=== PATIENT | female | born 2000 | race Caucasian/White ===

== ENCOUNTER → 2024-06-30 | Outpatient (CLI) | payer OTHER ==
[2024-06-30 18:53] LABS: HEMATOCRIT 33.7 % (36.0-47.0); HEMOGLOBIN 11.6 g/dl (12.0-15.5); MEAN CORPUSCULAR HEMOGLOBIN 31.4 pg (27.0-33.0); MEAN CORPUSCULAR HGB CONC 34.4 g/dl (32.0-36.5); MEAN CORPUSCULAR VOLUME 91.1 fl (80.0-96.0); PLATELET COUNT, AUTOMATED 267 10^3/uL (150-450); WHITE BLOOD COUNT 8.7 10^3/uL (4.0-10.0)
[2024-06-30 19:45] LABS: HIV 1&2 SCREEN NEGATIVE (NEGATIVE)
[2024-06-30 19:54] LABS: HEPATITIS C VIRUS ABY INDEX 0.18 INDEX (<0.8)
== END ==
LOC: M PLALAB 16:29
PROVIDERS: ATTEND Nurse Practitioner Family
DX: Z34.83 Encounter for supervision of other normal pregnancy, third trimester (principal)

== ENCOUNTER → 2024-07-18 | Outpatient (CLI) | payer OTHER ==
[2024-07-18 21:19] LABS: GC DNA AMPLIFICATION NEGATIVE (NEGATIVE)
== END ==
LOC: M PLALAB 14:06
PROVIDERS: ATTEND Nurse Practitioner Family
DX: Z34.83 Encounter for supervision of other normal pregnancy, third trimester (principal)

== ENCOUNTER → 2024-07-21 | Outpatient (REF) | payer OTHER | LOC: M SFHCWAGY 14:58 | PROVIDERS: ATTEND Nurse Practitioner Family | DX: N89.8 Other specified noninflammatory disorders of vagina (principal) ==

== ENCOUNTER 2024-08-09 04:31 | Outpatient (CLI) | payer OTHER ==
[2024-08-09] VITALS (7 sets, daily range): BP systolic 101–130; BP diastolic 45–66
[~2024-08-09] VITALS: Ht 175.3 cm; Wt 103.6 kg
[2024-08-09] MEDS: LR 1,000 ML IV ONE (05:25)
[2024-08-09 06:07] LABS: APPEARANCE, URINE CLOUDY (CLEAR); BACTERIA, URINE AUTO 3+ (NEGATIVE); BILIRUBIN, URINE AUTO NEGATIVE (NEGATIVE); BLOOD, URINE BLOOD 2+ (NEGATIVE); COLOR, URINE YELLOW (YELLOW); GLUCOSE, URINE (UA) AUTO NEGATIVE (NEGATIVE); KETONE, URINE AUTO TRACE mg/dL (NEGATIVE); LEUKOCYTE ESTERASE, URINE AUTO 3+ (NEGATIVE); MUCUS, URINE SMALL (NEGATIVE); NITRITE, URINE AUTO POSITIVE (NEGATIVE); PROTEIN, URINE AUTO 2+ mg/dL (NEGATIVE); RBC, URINE AUTO 40 /HPF (0-3); SPECIFIC GRAVITY URINE AUTO 1.006 (1.002-1.035); SQUAMOUS EPITHELIAL CELL UR AU 1 /HPF (0-6); UROBILINOGEN, URINE AUTO 0.2 mg/dL (0.0-2.0); WBC, URINE AUTO TNTC /HPF (0-3)
[2024-08-09] MEDS: LR 1,000 ML IV SCH (07:51)
[2024-08-09 07:52] LABS: HEMOGLOBIN 10.6 g/dl (12.0-15.5); MEAN CORPUSCULAR HEMOGLOBIN 29.8 pg (27.0-33.0); MEAN CORPUSCULAR HGB CONC 34.2 g/dl (32.0-36.5); MEAN CORPUSCULAR VOLUME 87.1 fl (80.0-96.0); PLATELET COUNT, AUTOMATED 235 10^3/uL (150-450); RED BLOOD COUNT 3.56 10^6/uL (4.00-5.40); WHITE BLOOD COUNT 12.3 10^3/uL (4.0-10.0)
[2024-08-09] MEDS: MORPHINE 4 MG/ML 1ML VIAL IV ONE (07:52)
[2024-08-09 07:59] LABS: ALBUMIN 2.8 G/DL (3.2-5.2); ALKALINE PHOSPHATASE 101 U/L (35-104); ALT/SGPT 10 U/L (7.0-40); AST/SGOT 13 U/L (<34); BLOOD UREA NITROGEN 9 MG/DL (9-23); CALCIUM LEVEL 9.2 MG/DL (8.5-10.1); CARBON DIOXIDE LEVEL 22 MMOL/L (20-31); CHLORIDE LEVEL 107 MMOL/L (98-107); CREATININE FOR GFR 0.59 MG/DL (0.55-1.30); GLOMERULAR FILTRATION RATE > 60.0 (>60); GLUCOSE, FASTING 112 MG/DL (60-100); POTASSIUM SERUM 4.2 MMOL/L (3.5-5.1); SODIUM LEVEL 138 MMOL/L (136-145); TOTAL PROTEIN 6.6 G/DL (5.7-8.2)
[2024-08-09] MEDS: cefTRIAXone SOD 1 GM in DEXTROSE 5% (D5W) ADV/MINI-BAG 50 ML IV ONE (08:47)
[2024-08-09] MEDS: MORPHINE 4 MG/ML 1ML VIAL IV PRN (11:16)
[2024-08-09] MEDS: PROMETHAZINE 25MG/ML 1ML VIAL IV PRN (11:50)
[2024-08-10 00:09] VITALS: BP 97/47
[2024-08-10 02:49] VITALS: BP 112/58
[2024-08-10 06:25] VITALS: BP 89/45
[2024-08-10 06:27] VITALS: BP 90/45
[2024-08-10 07:09] LABS: HEMATOCRIT 27.2 % (36.0-47.0); HEMOGLOBIN 9.3 g/dl (12.0-15.5); MEAN CORPUSCULAR HEMOGLOBIN 30.2 pg (27.0-33.0); MEAN CORPUSCULAR HGB CONC 34.2 g/dl (32.0-36.5); MEAN CORPUSCULAR VOLUME 88.3 fl (80.0-96.0); PLATELET COUNT, AUTOMATED 219 10^3/uL (150-450); RED BLOOD COUNT 3.08 10^6/uL (4.00-5.40); WHITE BLOOD COUNT 8.8 10^3/uL (4.0-10.0)
[2024-08-10 07:30] VITALS: BP 116/59
[2024-08-10] MEDS: cefTRIAXone SOD 1 GM in DEXTROSE 5% (D5W) ADV/MINI-BAG 50 ML IV ONE (09:00)
[2024-08-10] MEDS ORDERED: MACR100C43 PO (09:35)
== END 2024-08-10 10:10 | disposition home or self-care (01) ==
LOC: M LDO 04:31
PROVIDERS: ATTEND Obstetrics & Gynecology
DX: O23.03 Infections of kidney in pregnancy, third trimester (principal); O21.8 Other vomiting complicating pregnancy; O09.293 Supervision of pregnancy with other poor reproductive or obstetric history, third trimester; O98.513 Other viral diseases complicating pregnancy, third trimester; B00.9 Herpesviral infection, unspecified; Z3A.33 33 weeks gestation of pregnancy
CPT/HCPCS: 36415; 59025; 76775; 80053; 81001; 82731; 85027; 87088; 87186; 96360; 96361; 96374; 96375; 96376; G0463; J0696; J2550

== ENCOUNTER → 2024-08-27 | Outpatient (CLI) | payer OTHER ==
[~2024-08-27] MED LIST: MACR100C43 PO; ONDA-282 PO
== END ==
LOC: M RAD 14:17
PROVIDERS: ATTEND Nurse Practitioner Family
DX: Z34.83 Encounter for supervision of other normal pregnancy, third trimester (principal); Z3A.36 36 weeks gestation of pregnancy

== ENCOUNTER 2024-08-29 14:27 | Outpatient (CLI) | payer OTHER ==
[~2024-08-29] VITALS: Ht 175.3 cm; Wt 102.9 kg
[~2024-08-29 14:27] MED LIST changes: -ONDA-282 PO
[2024-08-29 14:50] VITALS: BP 131/70
[2024-08-29 15:51] LABS: HEMATOCRIT 32.5 % (36.0-47.0); HEMOGLOBIN 11.1 g/dl (12.0-15.5); MEAN CORPUSCULAR HEMOGLOBIN 29.2 pg (27.0-33.0); MEAN CORPUSCULAR HGB CONC 34.2 g/dl (32.0-36.5); MEAN CORPUSCULAR VOLUME 85.5 fl (80.0-96.0); PLATELET COUNT, AUTOMATED 230 10^3/uL (150-450); WHITE BLOOD COUNT 9.4 10^3/uL (4.0-10.0)
[2024-08-29] MEDS: LACTATED RINGER'S 1000 ML IV STA (16:17)
[2024-08-29] MEDS: ONDANSETRON 4MG 2ML VIAL IV SCH (16:17)
[2024-08-29 16:18] LABS: LIPASE 28 U/L (12-53)
[2024-08-29 16:20] LABS: ALBUMIN 2.8 G/DL (3.2-5.2); ALKALINE PHOSPHATASE 110 U/L (35-104); ALT/SGPT 11 U/L (7.0-40); AMYLASE 44 U/L (30-118); AST/SGOT 14 U/L (<34); BLOOD UREA NITROGEN 11 MG/DL (9-23); CALCIUM LEVEL 8.9 MG/DL (8.5-10.1); CARBON DIOXIDE LEVEL 24 MMOL/L (20-31); CHLORIDE LEVEL 104 MMOL/L (98-107); CREATININE FOR GFR 0.56 MG/DL (0.55-1.30); GLOMERULAR FILTRATION RATE > 60.0 (>60); GLUCOSE, FASTING 96 MG/DL (60-100); POTASSIUM SERUM 4.2 MMOL/L (3.5-5.1); SODIUM LEVEL 138 MMOL/L (136-145); TOTAL PROTEIN 6.6 G/DL (5.7-8.2)
[2024-08-29 16:45] LABS: APPEARANCE, URINE HAZY (CLEAR); BACTERIA, URINE AUTO 1+ (NEGATIVE); BILIRUBIN, URINE AUTO NEGATIVE (NEGATIVE); BLOOD, URINE BLOOD NEGATIVE (NEGATIVE); COLOR, URINE AMBER (YELLOW); GLUCOSE, URINE (UA) AUTO NEGATIVE (NEGATIVE); KETONE, URINE AUTO 2+ mg/dL (NEGATIVE); LEUKOCYTE ESTERASE, URINE AUTO 1+ (NEGATIVE); MUCUS, URINE SMALL (NEGATIVE); NITRITE, URINE AUTO NEGATIVE (NEGATIVE); PROTEIN, URINE AUTO 1+ mg/dL (NEGATIVE); RBC, URINE AUTO 2 /HPF (0-3); SPECIFIC GRAVITY URINE AUTO 1.027 (1.002-1.035); SQUAMOUS EPITHELIAL CELL UR AU 3 /HPF (0-6); WBC, URINE AUTO 6 /HPF (0-3)
[2024-08-29] MEDS: LR 1,000 ML IV SCH (17:46)
[2024-08-29] MEDS ORDERED: ONDA-282 PO (18:41)
[2024-08-29] MEDS: ONDANSETRON 4MG TAB PO ONE (19:05)
== END 2024-08-29 18:50 | disposition home or self-care (01) ==
LOC: M LDO 14:27
PROVIDERS: ATTEND Obstetrics & Gynecology
DX: O99.613 Diseases of the digestive system complicating pregnancy, third trimester (principal); O98.513 Other viral diseases complicating pregnancy, third trimester; K52.9 Noninfective gastroenteritis and colitis, unspecified; B00.9 Herpesviral infection, unspecified; Z88.0 Allergy status to penicillin; Z88.6 Allergy status to analgesic agent; Z88.8 Allergy status to other drugs, medicaments and biological substances; Z91.012 Allergy to eggs; Z3A.36 36 weeks gestation of pregnancy
CPT/HCPCS: 36415; 59025; 80053; 81001; 82150; 83690; 85027; 87086; 96374; 96376; G0463; J2405

== ENCOUNTER → 2024-09-01 | Outpatient (REF) | payer OTHER ==
[~2024-09-01] MED LIST changes: +ONDA-282 PO
== END ==
LOC: M PLALAB 13:04
PROVIDERS: ATTEND Nurse Practitioner Family
DX: Z36.89 Encounter for other specified antenatal screening (principal); Z3A.36 36 weeks gestation of pregnancy

== ENCOUNTER 2024-09-17 08:09 | Inpatient (IN) | payer OTHER ==
[2024-09-17] VITALS (15 sets, daily range): BP systolic 90–139; BP diastolic 47–79
[~2024-09-17] VITALS: Ht 175.3 cm; Wt 105.5 kg
[2024-09-17] MEDS ORDERED: PRENTAB9 PO (08:33)
[2024-09-17] MEDS ORDERED: ACET-897 PO (08:33)
[2024-09-17 10:30] LABS: HEMOGLOBIN 10.4 g/dl (12.0-15.5); MEAN CORPUSCULAR HEMOGLOBIN 28.1 pg (27.0-33.0); MEAN CORPUSCULAR HGB CONC 33.5 g/dl (32.0-36.5); MEAN CORPUSCULAR VOLUME 83.8 fl (80.0-96.0); PLATELET COUNT, AUTOMATED 216 10^3/uL (150-450); WHITE BLOOD COUNT 6.5 10^3/uL (4.0-10.0)
[2024-09-17 11:07] LABS: HIV 1&2 SCREEN NEGATIVE (NEGATIVE)
[2024-09-17] MEDS ORDERED: OXYTOCIN INJ 10UNITS/ML 1ML VIAL IM PRN (11:50)
[2024-09-17] MEDS ORDERED: CARBOPROST TROMETHAMINE 250 MCG/ML AMP IM PRN (11:50)
[2024-09-17] MEDS ORDERED: OXYTOCIN DRIP 30 UNITS in IV 1 EA IV PRN (11:50)
[2024-09-17] MEDS ORDERED: LIDOCAINE 1% MDV 20ML VIAL INFIL PRN (11:50)
[2024-09-17] MEDS: miSOPROStol 50MCG 1/2 TABLET PO ONE ×2 (12:03→16:50)
[2024-09-17] MEDS ORDERED: ceFAZolin SOD 1 GM in DEXTROSE 5% (D5W) ADV/MINI-BAG 50 ML IV SCH (19:50)
[2024-09-17] MEDS ORDERED: diphenhydrAMINE 50MG/ML VIAL IV PRN (20:50)
[2024-09-17] MEDS ORDERED: NALOXONE INJ 0.4MG/1ML VIAL IV PRN (20:50)
[2024-09-17] MEDS ORDERED: EPIDURAL/PCA KEYS XX PRN (20:50)
[2024-09-17] MEDS ORDERED: ePHEDrine SULFATE 25 MG/5 ML(5MG/ML) SYRINGE IVP PRN (20:50)
[2024-09-17] MEDS: LR 500 ML IV PRN (21:32)
[2024-09-17] MEDS: ceFAZolin SOD 2 GM in IV 1 EA IV STA (21:38)
[2024-09-17] MEDS: FENTANYL/ROPIVACAINE/NACL BAG 100 ML EPIDURAL SCH (21:38)
[2024-09-17] MEDS: OXYTOCIN DRIP 30 UNITS in IV 1 EA IV SCH (22:11)
[2024-09-17] MEDS: LR 1,000 ML IV SCH (22:56)
[2024-09-18] VITALS (15 sets, daily range): BP systolic 95–132; BP diastolic 47–75; TEMP 98.8; O2SAT 97
[2024-09-18] MEDS: ONDANSETRON 4MG 2ML VIAL IV PRN (02:38)
[2024-09-18] MEDS: TRANEXAMIC ACID INJection 1,000 MG in NS 100 ML IV PRN (03:50)
[2024-09-18] MEDS: METHYLERGONOVINE MALEATE 0.2MG/ML 1ML VIAL IM PRN (03:50)
[2024-09-18] MEDS: OXYTOCIN DRIP 30 UNITS in IV 1 EA IV PRN (03:56)
[2024-09-18] MEDS ORDERED: ACETAMINOPHEN 325 MG TAB PO PRN (04:55)
[2024-09-18] MEDS ORDERED: METHYLERGONOVINE MALEATE 0.2 MG TAB PO PRN (04:55)
[2024-09-18] MEDS ORDERED: DOCUSATE SODIUM 100MG CAPSULE PO PRN (04:55)
[2024-09-18] MEDS ORDERED: RHOGAM 300MCG (1500IU) INJ IM SCH (04:55)
[2024-09-18] MEDS: ACETAMINOPHEN 500 MG TAB PO PRN (06:06)
[2024-09-18] MEDS: PRENATAL VITAMINS CHEWABLE TABLET PO SCH (07:49)
[2024-09-18] MEDS: DIBUCAINE 1% OINTMENT 30GM TOP PRN (07:49)
[2024-09-19 06:00] VITALS: BP 114/67; O2SAT 97
[2024-09-19] MEDS: FLUBLOK(EGGFREE) TRIVAL(24-25) VACCINE PF 0.5ML SYRINGE 18YRS & OLDER IM.IMMUN ONE (12:37)
[2024-09-20] MEDS ORDERED: MEASLES,MUMPS,RUBELLA VACCINE INJ (MMR-II) SC.IMMUN ONE (09:00)
== END 2024-09-19 14:20 | disposition home or self-care (01) | DRG 807 ==
LOC: M LDI 08:09 → M OBS 09-18 06:37
PROVIDERS: ADMIT Advanced Practice Midwife; ATTEND Advanced Practice Midwife
PROC: 3E0P7GC Introduction of Other Therapeutic Substance into Female Reproductive, Via Natural or Artificial Opening (ICD-10-PCS; 2024-09-17)
PROC: 3E033VJ Introduction of Other Hormone into Peripheral Vein, Percutaneous Approach (ICD-10-PCS; 2024-09-17)
PROC: 10E0XZZ Delivery of Products of Conception, External Approach (ICD-10-PCS; principal; 2024-09-18)
PROC: 0KQM0ZZ Repair Perineum Muscle, Open Approach (ICD-10-PCS; 2024-09-18)
DX: O36.60X0 Maternal care for excessive fetal growth, unspecified trimester, not applicable or unspecified (principal); Z37.0 Single live birth; Z3A.39 39 weeks gestation of pregnancy; O99.820 Streptococcus B carrier state complicating pregnancy; O69.82X0 Labor and delivery complicated by other cord entanglement, without compression, not applicable or unspecified; O66.0 Obstructed labor due to shoulder dystocia; O70.1 Second degree perineal laceration during delivery

== ENCOUNTER 2024-12-14 17:07 | Emergency (ER) | payer OTHER ==
[~2024-12-14] VITALS: Ht 175.3 cm; Wt 89.2 kg
[~2024-12-14 17:07] MED LIST changes: +ACET-897 PO; +PRENTAB9 PO
[2024-12-14 19:52] VITALS: BP 135/66; TEMP 98.7; O2SAT 99
== END 2024-12-14 20:07 | disposition home or self-care (01) ==
LOC: M ED 17:07
DX: J06.9 Acute upper respiratory infection, unspecified (principal); B34.8 Other viral infections of unspecified site; Z88.0 Allergy status to penicillin; Z88.6 Allergy status to analgesic agent; Z91.012 Allergy to eggs; Z91.040 Latex allergy status; Z91.09 Other allergy status, other than to drugs and biological substances; Z79.1 Long term (current) use of non-steroidal anti-inflammatories (NSAID)

== ENCOUNTER 2025-03-16 10:10 | Emergency (ER) | payer OTHER ==
[~2025-03-16] VITALS: Ht 175.3 cm; Wt 94.4 kg
[2025-03-16] MEDS ORDERED: ACET-910 PO (10:32)
[2025-03-16 12:26] VITALS: BP 116/59; TEMP 98.2; O2SAT 99
[2025-03-16] MEDS ORDERED: ASPE4PAD TOP (13:41)
[2025-03-16] MEDS ORDERED: METH-1165 PO (13:41)
== END 2025-03-16 13:48 | disposition home or self-care (01) ==
LOC: M ED 10:10
DX: S39.012A Strain of muscle, fascia and tendon of lower back, initial encounter (principal); X58.XXXA Exposure to other specified factors, initial encounter; F41.9 Anxiety disorder, unspecified; Z88.0 Allergy status to penicillin; Z88.8 Allergy status to other drugs, medicaments and biological substances; Z91.012 Allergy to eggs; Z91.040 Latex allergy status; Y92.9 Unspecified place or not applicable; Y93.89 Activity, other specified; Y99.9 Unspecified external cause status; Z79.1 Long term (current) use of non-steroidal anti-inflammatories (NSAID); Z79.899 Other long term (current) drug therapy